=== PATIENT | female | born 1985 | race Caucasian/White ===

== ENCOUNTER 2018-05-25 09:20 | Emergency (ER) | payer MEDICAID ==
[~2018-05-25] VITALS: Ht 152.4 cm; Wt 71.7 kg
[2018-05-25 09:26] VITALS: BP 135/85
--- NOTE | 2018-05-25 09:32 | NUR ---
33 Y/O F WITH C/O HEADACHE X3 DAYS. ACHING AND THROBBING. 10/10 PAIN. PAIN RADIATES FROM FRONT TO BACK OF THE HEAD. TENDERNESS UPON PALPATION. NO CHANGES IN VISION. MD NOTIFIED. WILL CONTINUE TO MONITOR.
[2018-05-25] MEDS ORDERED: METOCLOPRAMIDE 10 MG/2 ML INJ VIAL IM ONE (10:30)
[2018-05-25] MEDS ORDERED: KETOROLAC 60 MG/2 ML VIAL IM ONE (10:30)
[2018-05-25 10:40] LABS: APPEARANCE,URINE CLEAR (CLEAR); BILIRUBIN,URINE NEGATIVE (NEGATIVE); BLOOD, URINE NEGATIVE (NEGATIVE); COLOR,URINE YELLOW (YELLOW); LEUKOCYTE ESTERASE ,URINE NEGATIVE (NEGATIVE); NITRITE, URINE NEGATIVE (NEGATIVE); UGLUCOSE NEGATIVE (NEGATIVE)
[2018-05-25 10:45] LABS: BARBITURATE, URINE NEG. ng/ml (NEG <=200); BENZODIAZEPINE, URINE NEG. ng/mL (NEG <=200); CANNABINOID, URINE NEG. ng/mL (NEG <=50); COCAINE, URINE NEG. ng/mL (NEG <=300); OPIATE, URINE NEG. ng/mL (NEG <=2000); PHENCYCLIDINE SCREEN,URINE NEG. ng/mL (NEG <=25)
--- NOTE | 2018-05-25 11:05 | NUR ---
Patient discharged with v/s stable. Written and verbal after care instructions given and explained. Patient alert, oriented and verbalized understanding of instructions. Ambulatory with steady gait. All questions addressed prior to discharge. ID band removed. Patient advised to follow up with PMD. Rx of Fericiet given. Patient educated on indication of medication including possible reaction and side effects. Opportunity to ask questions provided and answered.
[2018-05-25 11:07] VITALS: BP 135/85
== END 2018-05-25 11:05 | disposition home or self-care (01) ==
LOC: MED 09:20
DX: R51 Headache (principal)
CPT/HCPCS: 80305; 81003; 81025; 96372; 99283; J1885; J2765